=== PATIENT | female | born 1930 | race African-American/Black ===

== ENCOUNTER 2020-10-01 01:34 | Inpatient (IN) | payer OTHER, MEDICAID ==
[~2020-10-01] VITALS: Ht 162.6 cm; Wt 49.7 kg
[2020-10-01] VITALS (8 sets, daily range): BP systolic 113–180; BP diastolic 51–84
[2020-10-01] MEDS ORDERED: FUROSEMIDE 40MG/4ML VIAL IVP ONE (02:00)
[2020-10-01 02:36] LABS: BASOPHILS % 0.4 % (0.0-2.0); HEMOGLOBIN. 10.5 g/dL (12.0-16.0); LYMPHOCYTES % 13.3 % (20.0-50.0); MEAN CORPUSCULAR HEMOGLOBIN 28.8 pg (28.0-32.0); MEAN CORPUSCULAR VOLUME 87.6 fL (81.0-99.0); MEAN PLATELET VOLUME 9.2 fl (7.4-10.4); MONOCYTES % 7.9 % (2.0-8.0); NEUTROPHILS % 77.4 % (40.0-76.0); PLATELET 214 x1000/uL (130-400); RED BLOOD CELL COUNT 3.65 mill/uL (4.2-5.4); RED CELL DISTRIBUTION WIDTH 14.3 % (11.6-14.6)
[2020-10-01 03:22] LABS: CHLORIDE 100 mEq/L (98-107)
[2020-10-01] MEDS ORDERED: CEFTRIAXONE 1 G PREMIX 50 ML IV NR (03:30)
[2020-10-01] MEDS ORDERED: AZITHROMYCIN 500 MG in DEXT 5% WATER 250 ML IV SCH (04:00)
[2020-10-01] MEDS ORDERED: DOCUSATE SODIUM 100MG CAPSULE PO PRN (07:45)
[2020-10-01] MEDS ORDERED: MAGNESIUM/ALUMINUM HYDROXIDE/SIMETHICONE 30ML UDC PO PRN (07:45)
[2020-10-01] MEDS ORDERED: GUAIFENESIN 200MG/10ML SUGAR FREE UDC PO PRN (07:45)
[2020-10-01] MEDS ORDERED: CLONIDINE 0.1MG TABLET PO PRN (07:45)
[2020-10-01] MEDS ORDERED: ACETAMINOPHEN 325MG TABLET PO PRN (07:45)
[2020-10-01] MEDS ORDERED: ONDANSETRON HCL 4MG/2ML INJ IV PRN (07:45)
[2020-10-01] MEDS ORDERED: NITROGLYCERIN 0.4MG TABLET SL SL PRN (07:45)
[2020-10-01] MEDS ORDERED: ZOLPIDEM TARTRATE 5MG TABLET PO PRN (07:45)
[2020-10-01] MEDS ORDERED: IPRATROPIUM/ALBUTEROL 0.5-3(2.5)MG/3ML NEB NEB PRN (07:45)
[2020-10-01] MEDS ORDERED: KETOROLAC 15MG/ML VIAL IV PRN (07:45)
[2020-10-01] MEDS: ZINC SULFATE 220 MG ( 50 ) CAPSULE PO SCH (09:30)
[2020-10-01] MEDS: ENOXAPARIN 40MG/0.4ML SYR SUBCUT SCH (09:30)
[2020-10-01] MEDS: FUROSEMIDE 40MG/4ML VIAL IVP SCH ×2 (09:30→17:58)
[2020-10-01] MEDS: ASCORBIC ACID 500 MG TABLET PO SCH ×2 (09:31→21:00)
[2020-10-01] MEDS: ASPIRIN 325MG EC TABLET PO SCH (09:31)
[2020-10-01] MEDS: FAMOTIDINE 20MG TABLET PO SCH ×2 (09:31→21:00)
[2020-10-01] MEDS: LISINOPRIL 20MG TABLET PO SCH ×2 (09:31→21:00)
[2020-10-01] MEDS: GUAIFENESIN/DM 600MG/30MG ER TAB 12HR PO SCH ×2 (09:31→21:00)
[2020-10-01] MEDS: SPIRONOLACTONE 25MG TABLET PO SCH ×2 (09:31→21:00)
[2020-10-01 12:58] LABS: FOLIC ACID (FOLATE) SERUM >20 ng/mL ng/mL (>5.38)
[2020-10-01 13:09] LABS: VITAMIN B12 SERUM 772 pg/mL (211-911)
[2020-10-01] MEDS ORDERED: SIMV-46 PO (13:35)
[2020-10-01] MEDS ORDERED: ACET-2708 MT (13:35)
[2020-10-01] MEDS ORDERED: APIX2.5T MT (13:35)
[2020-10-01] MEDS ORDERED: DOCU100T MT (13:35)
[2020-10-01] MEDS ORDERED: VIT1TABL62 PO (13:35)
[2020-10-01] MEDS ORDERED: MIRT7.5T11 PO (13:35)
[2020-10-01] MEDS ORDERED: MELA5TAB19 MT (13:35)
[2020-10-01] MEDS ORDERED: HYDR100T26 PO (13:35)
[2020-10-01] MEDS ORDERED: AMLO10TA80 MT (13:35)
[2020-10-01] MEDS ORDERED: METO100T16 PO (13:35)
[2020-10-01] MEDS: CHOLECALCIFEROL (D3) 1000 UNIT TABLET PO SCH (15:46)
[2020-10-01 21:17] LABS: CREATINE KINASE 64 IU/L (26-192)
[2020-10-01 21:20] LABS: CREATINE KINASE MB FRACTION < 1.0 ng/mL (0.5-3.6)
[2020-10-02] VITALS (13 sets, daily range): BP systolic 92–146; BP diastolic 50–85
[2020-10-02] MEDS ORDERED: AZITHROMYCIN 500 MG in DEXT 5% WATER 250 ML IV SCH (04:00)
[2020-10-02] MEDS: FUROSEMIDE 40MG/4ML VIAL IVP SCH ×2 (06:16→18:20)
[2020-10-02 06:33] LABS: CHLORIDE 99 mEq/L (98-107)
[2020-10-02 06:45] LABS: PHOSPHORUS 3.4 mg/dL (2.5-4.9)
[2020-10-02 06:48] LABS: CREATINE KINASE 52 IU/L (26-192); HEMATOCRIT. 30.8 % (36.0-48.0); HEMOGLOBIN. 10.2 g/dL (12.0-16.0); MEAN CORPUSCULAR HEMOGLOBIN 29.4 pg (28.0-32.0); MEAN CORPUSCULAR VOLUME 88.4 fL (81.0-99.0); MEAN PLATELET VOLUME 9.6 fl (7.4-10.4); PLATELET 203 x1000/uL (130-400); RED BLOOD CELL COUNT 3.48 mill/uL (4.2-5.4); RED CELL DISTRIBUTION WIDTH 14.6 % (11.6-14.6)
[2020-10-02 06:50] LABS: CREATINE KINASE MB FRACTION < 1.0 ng/mL (0.5-3.6)
[2020-10-02] MEDS: ASCORBIC ACID 500 MG TABLET PO SCH ×2 (09:00→20:38)
[2020-10-02] MEDS: SPIRONOLACTONE 25MG TABLET PO SCH ×2 (09:39→20:38)
[2020-10-02] MEDS: LISINOPRIL 20MG TABLET PO SCH ×2 (09:39→20:38)
[2020-10-02] MEDS: CHOLECALCIFEROL (D3) 1000 UNIT TABLET PO SCH (09:39)
[2020-10-02] MEDS: ENOXAPARIN 40MG/0.4ML SYR SUBCUT SCH (09:39)
[2020-10-02] MEDS: ASPIRIN 325MG EC TABLET PO SCH (09:39)
[2020-10-02] MEDS: GUAIFENESIN/DM 600MG/30MG ER TAB 12HR PO SCH ×2 (09:40→20:37)
[2020-10-02] MEDS: FAMOTIDINE 20MG TABLET PO SCH (09:40)
[2020-10-02] MEDS: ZINC SULFATE 220 MG ( 50 ) CAPSULE PO SCH (09:40)
[2020-10-02] MEDS ORDERED: VANCOMYCIN 1 G PREMIX 200 ML IV NR (11:00)
[2020-10-02 15:13] LABS: PLATELET ESTIMATE NORMAL
[2020-10-03] VITALS (12 sets, daily range): BP systolic 108–151; BP diastolic 48–90
[2020-10-03 01:36] LABS: *AMPHETAMINES SCREEN URINE NEGATIVE (NEGATIVE); *BARBITURATES SCREEN URINE NEGATIVE (NEGATIVE)
[2020-10-03 01:37] LABS: *BENZODIAZEPINES SCREEN URINE NEGATIVE (NEGATIVE); *COCAINE SCREEN URINE NEGATIVE (NEGATIVE); CANNABINOID URINE SCREEN NEGATIVE (NEGATIVE); METHADONE URINE SCREEN NEGATIVE (NEGATIVE); OPIATES URINE SCREEN NEGATIVE (NEGATIVE); PHENCYCLIDINE URINE SCREEN NEGATIVE (NEGATIVE)
[2020-10-03] MEDS: ACETAMINOPHEN 325MG TABLET PO PRN (04:26)
[2020-10-03] MEDS: FUROSEMIDE 40MG/4ML VIAL IVP SCH ×2 (05:51→17:41)
[2020-10-03] MEDS ORDERED: ENOXAPARIN 40MG/0.4ML SYR SUBCUT SCH (09:00)
[2020-10-03] MEDS: ASCORBIC ACID 500 MG TABLET PO SCH ×2 (09:00→21:55)
[2020-10-03] MEDS: VANCOMYCIN 750 MG PREMIX 150 ML IV SCH (10:24)
[2020-10-03] MEDS: ZINC SULFATE 220 MG ( 50 ) CAPSULE PO SCH (10:24)
[2020-10-03] MEDS: ASPIRIN 325MG EC TABLET PO SCH (10:24)
[2020-10-03] MEDS: CHOLECALCIFEROL (D3) 1000 UNIT TABLET PO SCH (10:24)
[2020-10-03] MEDS: GUAIFENESIN/DM 600MG/30MG ER TAB 12HR PO SCH ×2 (10:26→21:39)
[2020-10-03] MEDS: LISINOPRIL 20MG TABLET PO SCH ×2 (10:26→21:42)
[2020-10-03] MEDS: SPIRONOLACTONE 25MG TABLET PO SCH ×2 (10:26→21:42)
[2020-10-03] MEDS: FAMOTIDINE 20MG TABLET PO SCH (10:26)
[2020-10-03] MEDS: DILTIAZEM HCL 60MG TABLET PO SCH ×2 (16:25→21:42)
[2020-10-03 20:47] LABS: EOSINOPHILS % 3.2 % (0.0-5.0); HEMATOCRIT. 33.2 % (36.0-48.0); HEMOGLOBIN. 11.1 g/dL (12.0-16.0); LYMPHOCYTES % 39.2 % (20.0-50.0); MEAN CORPUSCULAR HEMOGLOBIN 29.4 pg (28.0-32.0); MEAN CORPUSCULAR VOLUME 87.9 fL (81.0-99.0); MEAN PLATELET VOLUME 9.9 fl (7.4-10.4); MONOCYTES % 14.7 % (2.0-8.0); NEUTROPHILS % 41.9 % (40.0-76.0); PLATELET 217 x1000/uL (130-400); RED BLOOD CELL COUNT 3.78 mill/uL (4.2-5.4); RED CELL DISTRIBUTION WIDTH 14.3 % (11.6-14.6)
[2020-10-03 20:58] LABS: PHOSPHORUS 4.2 mg/dL (2.5-4.9)
[2020-10-03] MEDS ORDERED: DILTIAZEM HCL 30MG TABLET PO SCH (22:00)
[2020-10-04] VITALS (12 sets, daily range): BP systolic 58–152; BP diastolic 28–76
[2020-10-04] MEDS: ACETAMINOPHEN 325MG TABLET PO PRN (04:16)
[2020-10-04] MEDS ORDERED: ENOXAPARIN 60MG/0.6ML SYR SUBCUT SCH (06:00)
[2020-10-04] MEDS: FUROSEMIDE 40MG/4ML VIAL IVP SCH ×2 (06:16→17:53)
[2020-10-04] MEDS: DILTIAZEM HCL 60MG TABLET PO SCH ×3 (06:17→22:06)
[2020-10-04] MEDS: ENOXAPARIN 60MG/0.6ML SYR SUBCUT SCH (06:18)
[2020-10-04 06:51] LABS: HEMATOCRIT. 31.7 % (36.0-48.0); HEMOGLOBIN. 10.5 g/dL (12.0-16.0); MEAN CORPUSCULAR HEMOGLOBIN 28.8 pg (28.0-32.0); MEAN CORPUSCULAR VOLUME 87.3 fL (81.0-99.0); MEAN PLATELET VOLUME 9.5 fl (7.4-10.4); PLATELET 223 x1000/uL (130-400); RED BLOOD CELL COUNT 3.63 mill/uL (4.2-5.4); RED CELL DISTRIBUTION WIDTH 14.2 % (11.6-14.6)
[2020-10-04 07:11] LABS: PHOSPHORUS 4.4 mg/dL (2.5-4.9)
[2020-10-04] MEDS: ASCORBIC ACID 500 MG TABLET PO SCH ×2 (09:00→21:05)
[2020-10-04] MEDS: LISINOPRIL 20MG TABLET PO SCH ×2 (09:00→21:07)
[2020-10-04] MEDS: FAMOTIDINE 20MG TABLET PO SCH (09:48)
[2020-10-04] MEDS: ASPIRIN 325MG EC TABLET PO SCH (09:48)
[2020-10-04] MEDS: CHOLECALCIFEROL (D3) 1000 UNIT TABLET PO SCH (09:48)
[2020-10-04] MEDS: VANCOMYCIN 750 MG PREMIX 150 ML IV SCH (09:48)
[2020-10-04] MEDS: GUAIFENESIN/DM 600MG/30MG ER TAB 12HR PO SCH ×2 (09:48→21:06)
[2020-10-04] MEDS: ZINC SULFATE 220 MG ( 50 ) CAPSULE PO SCH (09:48)
[2020-10-04] MEDS: SPIRONOLACTONE 25MG TABLET PO SCH ×2 (09:50→21:08)
[2020-10-05] VITALS (12 sets, daily range): BP systolic 107–132; BP diastolic 44–86
[2020-10-05] MEDS: DILTIAZEM HCL 60MG TABLET PO SCH ×2 (06:00→21:09)
[2020-10-05] MEDS: FUROSEMIDE 40MG/4ML VIAL IVP SCH (06:17)
[2020-10-05] MEDS: ENOXAPARIN 60MG/0.6ML SYR SUBCUT SCH (06:18)
[2020-10-05] MEDS: ZINC SULFATE 220 MG ( 50 ) CAPSULE PO SCH (08:28)
[2020-10-05] MEDS: ASPIRIN 325MG EC TABLET PO SCH (08:28)
[2020-10-05] MEDS: FAMOTIDINE 20MG TABLET PO SCH (08:28)
[2020-10-05] MEDS: CHOLECALCIFEROL (D3) 1000 UNIT TABLET PO SCH (08:28)
[2020-10-05] MEDS: LISINOPRIL 20MG TABLET PO SCH ×2 (08:28→21:09)
[2020-10-05] MEDS: SPIRONOLACTONE 25MG TABLET PO SCH (08:28)
[2020-10-05] MEDS: GUAIFENESIN/DM 600MG/30MG ER TAB 12HR PO SCH ×2 (08:28→21:08)
[2020-10-05] MEDS ORDERED: AMIODARONE HCL 900 MG in DEXT 5% WATER 482 ML IV SCH (08:30)
[2020-10-05] MEDS: ASCORBIC ACID 500 MG TABLET PO SCH ×2 (08:48→21:08)
[2020-10-05] MEDS: VANCOMYCIN 500 MG PREMIX 100 ML IV SCH (13:00)
[2020-10-05 18:01] LABS: PLATELET ESTIMATE NORMAL
[2020-10-06] VITALS (9 sets, daily range): BP systolic 112–144; BP diastolic 54–76
[2020-10-06] MEDS: ENOXAPARIN 60MG/0.6ML SYR SUBCUT SCH (06:22)
[2020-10-06] MEDS: VANCOMYCIN 500 MG PREMIX 100 ML IV SCH (06:50)
[2020-10-06] MEDS ORDERED: AMIODARONE HCL 200 MG TABLET PO SCH (09:00)
[2020-10-06] MEDS ORDERED: FUROSEMIDE 40MG/4ML VIAL IVP SCH (09:00)
[2020-10-06] MEDS: GUAIFENESIN/DM 600MG/30MG ER TAB 12HR PO SCH (09:17)
[2020-10-06] MEDS: CHOLECALCIFEROL (D3) 1000 UNIT TABLET PO SCH (09:18)
[2020-10-06] MEDS: LISINOPRIL 20MG TABLET PO SCH (09:18)
[2020-10-06] MEDS: FAMOTIDINE 20MG TABLET PO SCH (09:18)
[2020-10-06] MEDS: ZINC SULFATE 220 MG ( 50 ) CAPSULE PO SCH (09:18)
[2020-10-06] MEDS: ASCORBIC ACID 500 MG TABLET PO SCH (09:18)
[2020-10-06] MEDS: DILTIAZEM HCL 60MG TABLET PO SCH (09:18)
[2020-10-06] MEDS: ASPIRIN 325MG EC TABLET PO SCH (09:19)
[2020-10-06 10:20] LABS: HEMATOCRIT. 32.8 % (36.0-48.0); MEAN CORPUSCULAR HEMOGLOBIN 29.3 pg (28.0-32.0); MEAN CORPUSCULAR VOLUME 87.8 fL (81.0-99.0); MEAN PLATELET VOLUME 9.2 fl (7.4-10.4); PLATELET 229 x1000/uL (130-400); RED BLOOD CELL COUNT 3.74 mill/uL (4.2-5.4); RED CELL DISTRIBUTION WIDTH 14.3 % (11.6-14.6)
[2020-10-06] MEDS ORDERED: APIXABAN 2.5 MG TABLET PO SCH (17:00)
[2020-10-06 21:52] LABS: PLATELET ESTIMATE NORMAL
== END 2020-10-06 15:29 | disposition home or self-care (01) | DRG 291 ==
LOC: ER 01:34 → 7WST 04:49 → EDBEDREQSVC 07:45 → ENRESERV 09:24 → 3WST 16:44 → UNDODISIN 10-03 13:41
PROVIDERS: ADMIT Internal Medicine; ATTEND Internal Medicine
PROC: 5A09357 Assistance with Respiratory Ventilation, Less than 24 Consecutive Hours, Continuous Positive Airway Pressure (ICD-10-PCS; principal; 2020-10-01)
DX: I11.0 Hypertensive heart disease with heart failure (principal); J96.01 Acute respiratory failure with hypoxia; E44.1 Mild protein-calorie malnutrition; E87.1 Hypo-osmolality and hyponatremia; Z68.1 Body mass index [BMI] 19.9 or less, adult; I48.20 Chronic atrial fibrillation, unspecified; J44.9 Chronic obstructive pulmonary disease, unspecified; Z20.822 Contact with and (suspected) exposure to COVID-19; D63.8 Anemia in other chronic diseases classified elsewhere; D72.829 Elevated white blood cell count, unspecified; I27.20 Pulmonary hypertension, unspecified; I36.1 Nonrheumatic tricuspid (valve) insufficiency; I50.33 Acute on chronic diastolic (congestive) heart failure; I35.1 Nonrheumatic aortic (valve) insufficiency; I34.0 Nonrheumatic mitral (valve) insufficiency; Z79.899 Other long term (current) drug therapy; Z82.49 Family history of ischemic heart disease and other diseases of the circulatory system; Z78.9 Other specified health status; Z79.01 Long term (current) use of anticoagulants
CPT/HCPCS: 36415; 71045; 80048; 80053; 80061; 80202; 80305; 82550; 82553; 82607; 82746; 83036; 83540; 83550; 83605; 83615; 83735; 83880; 84100; 84145; 84443; 84484; 85025; 85379; 87077; 87186; 92610; 93005; 93306; 93970; 94660; 97116; 97162; 97166; 97530; 99291; A6261; C9803; J0282; J0456; J0696; J1650; J1940; J3370; J7040; J7060; U0003; U0005